=== PATIENT | male | born 1975 | race Caucasian/White ===

== ENCOUNTER 2018-10-12 02:22 | Emergency (ER) | payer OTHER ==
[~2018-10-12] VITALS: Ht 182.9 cm; Wt 81.8 kg
[~2018-10-12 02:22] MED LIST: ANTIDEPRESSENT; CIPRO XR500 MG PO; MIRTAZAPINE15 MG PO
[2018-10-12] MEDS ORDERED: DOXYCYCL HYC100 MG PO (02:55)
[2018-10-12 03:15] VITALS: BP 144/109
== END 2018-10-12 03:15 | disposition home or self-care (01) ==
LOC: ED 02:22
DX: S50.851A Superficial foreign body of right forearm, initial encounter (principal); W26.8XXA Contact with other sharp object(s), not elsewhere classified, initial encounter; W45.8XXA Other foreign body or object entering through skin, initial encounter; W21.89XA Striking against or struck by other sports equipment, initial encounter; Y93.59 Activity, other involving other sports and athletics played individually; Y92.89 Other specified places as the place of occurrence of the external cause